=== PATIENT | female | born 2000 | race African-American/Black ===

== ENCOUNTER 2024-01-13 08:20 | Emergency (ER) | payer BC ==
[~2024-01-13] VITALS: Ht 167.6 cm; Wt 72.1 kg
[2024-01-13 08:38] VITALS: BP 108/62; PULSE 78; RESP 18; TEMP 97.6; O2SAT 97
[2024-01-13] MEDS: KETOROLAC TROMETH 60MG/2ML VIAL IM ONE (08:52)
[2024-01-13] MEDS: DexAMETHasone SOD PHOS 10MG/1ML VIAL INJ IM ONE (08:53)
[2024-01-13] MEDS ORDERED: NAP500T PO (09:20)
== END 2024-01-13 09:24 | disposition home or self-care (01) ==
LOC: ER 08:20
DX: J02.9 Acute pharyngitis, unspecified (principal); Z79.899 Other long term (current) drug therapy
CPT/HCPCS: 96372; 99284; J1100; J1885